=== PATIENT | female | born 1930 | race Caucasian/White ===

== ENCOUNTER → 2017-02-08 | Outpatient (REF) | payer MEDICARE, OTHER | LOC: M SMT 17:30 | PROVIDERS: ATTEND Nurse Practitioner Women's Health | DX: R31.29 Other microscopic hematuria (principal) | CPT/HCPCS: 81001; 87086; 88108; G0463 ==

== ENCOUNTER → 2017-02-12 | Outpatient (CLI) | payer MEDICARE, OTHER ==
[2017-02-12 17:44] LABS: CREATININE FOR GFR 1.84 MG/DL (0.55-1.02); GLOMERULAR FILTRATION RATE 27.6 (>32); POTASSIUM SERUM 4.6 MEQ/L (3.5-5.1)
== END ==
LOC: M SMT 11:11
PROVIDERS: ATTEND Nurse Practitioner Women's Health
DX: R31.29 Other microscopic hematuria (principal)

== ENCOUNTER → 2017-02-21 | Outpatient (CLI) | payer MEDICARE, OTHER ==
--- NOTE | 2017-02-21 14:17 | REP ---
CT abdomen pelvis without IV or bowel contrast: Comparison is 08/23/2005. There are no renal or ureteral calculi. There is no hydronephrosis. There are no bladder calculi. The right kidney is markedly atrophic. This has progressed from the prior study. The left kidney is unremarkable and unchanged. There is an infrarenal abdominal aortic aneurysm measuring 3.0 cm in diameter. This measured to point 8 cm in diameter, previously. There is no periaortic hematoma. There is vascular atheroma throughout the abdominal aorta. There is atelectasis/infiltrate in the right lower lobe. The lower lobe of the left lung is clear. The visualized unenhanced hepatic parenchyma is unremarkable. There are surgical clips in the abdominal right upper quadrant compatible with cholecystectomy. The pancreas and spleen are normal size and unremarkable. The adrenals are unremarkable. There is no bowel distension. Mesentery is unremarkable. Pelvis: The the patient indicates he has an appendectomy. The uterus and adnexa are unremarkable except for bilateral fallopian tube calcifications. These are unchanged. The bladder is unremarkable. There is no ascites or adenopathy. There is sigmoid colon diverticulosis without diverticulitis. Impression: Atrophic right kidney. This has progressed from the prior study. Left kidney is of normal size. There are no renal or ureteral calculi. No hydronephrosis. No bladder calculi. There is diverticulosis without diverticulitis. The patient has a cholecystectomy and appendectomy. In the absence of IV contrast the study is insensitive for renal masses. Signed by Raymundo Riggs MD 02/21/2017 02:09 P
== END ==
LOC: M RAD 12:44
PROVIDERS: ATTEND Nurse Practitioner Women's Health
DX: R31.29 Other microscopic hematuria (principal)

== ENCOUNTER → 2017-03-23 | Outpatient (REF) | payer MEDICARE, OTHER ==
[~2017-03-23] MED LIST: ADV250INH INH; ASPI1TAB PO; BISO5TAB5 PO; CYAN1000VL IM; DILT60TA PO; FERR240T PO; LEVO75TA4 PO; NITR0.4S14 SL; ROCA0.25 PO; SIMV40TA2 PO; SITA50TAB PO; VENTAER INH; XANA0.5T PO
== END ==
LOC: M LAB REF 13:10
PROVIDERS: ATTEND Family Medicine
DX: N25.81 Secondary hyperparathyroidism of renal origin (principal)

== ENCOUNTER → 2017-03-28 | Outpatient (CLI) | payer MEDICARE, OTHER ==
--- NOTE | 2017-03-28 09:40 | REP ---
Clinical: History of bladder tumor. Technique: PA and lateral. Comparison: 03/27/2010. Findings: Lung denton demonstrate diffuse chronic appearing interstitial changes without obvious acute consolidation. Lateral view demonstrates blunting to the posterior diaphragmatic surfaces which may reflect chronic change versus small pleural reactions. Mediastinum and cardiac silhouette are within normal limits and stable. Skeletal structures demonstrate age-related changes. Airway is patent and midline. Impression: Chronic-appearing changes. Signed by Vu Abad MD 03/28/2017 09:32 A
[2017-03-28 13:18] LABS: INR 0.98
== END ==
LOC: M SMT 08:03
PROVIDERS: ATTEND Urology
DX: D49.4 Neoplasm of unspecified behavior of bladder (principal); N39.0 Urinary tract infection, site not specified; Z01.818 Encounter for other preprocedural examination; Z79.899 Other long term (current) drug therapy

== ENCOUNTER 2017-04-02 05:51 | Day surgery (SDC) | payer MEDICARE, OTHER ==
--- NOTE | 2017-03-28 09:23 | CR ---
PREOPERATIVE EVALUATION AND CONSULTATION REQUESTING SURGEON: Dr. Paez CONSULTING PHYSICIAN: Dr. Vinicio Jordan DATE OF CONSULTATION: 03/26/2017 CHIEF COMPLAINT: Bladder cancer. HISTORY OF PRESENT ILLNESS: This is an 86-year-old female patient of [facility] who presents today for preoperative evaluation and consultation prior to urethroscopic bladder tumor resection to be completed by Dr. Paez on 04/02/2017. The patient notes that she is "feeling great." She denies any new problems or concerns. She notes that she has extensive support from her neighbors and that her son is traveling to [place] to be with her during the perioperative time period. She did have laboratories done on 03/23/2017 showing hemoglobin A1/c of 6.2, creatinine 1.4, BUN 21, otherwise appropriate electrolytes, lipids. Normal TSH, normal WBC, platelets. Minimal decrease in hemoglobin 11.7. EKG was completed today as well, showing normal sinus rhythm. Again, the patient notes that she feels well without any acute shortness of breath, chest pain, headache, vision changes, or new symptoms. She is unaware of any anesthesia issues that she has had in the past. She does see Dr. Guerin of cardiology due to a distant myocardial infarction and possible cardiomyopathy. However, echocardiogram done on 01/25/2016 showed a normal ejection fraction of 60 to 65% and no significant valvular disease. She denies any symptoms suggestive of sleep apnea. She does not feel that she snores or feels any daytime fatigue. It is notable that she is diagnosed with chronic obstructive pulmonary disease (COPD) and uses an Advair inhaler with Ventolin rescue, which is felt to be due to many years of smoking, for which she quit in 2000 after starting approximately in 1945. She notes that she has already stopped her aspirin 3 weeks in anticipation of surgery. She notes that she was already instructed on what to take and has been off her Plavix for 6 months. Medical issues include her hematuria, found to be a small bladder cancer, which is to be resected, history of remote myocardial infarction, leading to the diagnosis of coronary artery disease and follows with Dr. Guerin, chronic kidney disease with a creatinine that is now stable at 1.4 and previously gone as high as 1.9 in August 2016, hypothyroidism, hyperlipidemia, type 2 diabetes (well controlled), history of mild anemia, hypertension and significant anxiety. Each medical issue appears addressed and appears to be stable today. PAST MEDICAL HISTORY: 1. Bladder cancer. 2. COPD. 3. Type 2 diabetes, controlled. 4. Hyperlipidemia. 5. Hypothyroidism. 6. Coronary artery disease, remote myocardial infarction - saw Dr Guerin (Q 1 yr, no acute issues). 7. Chronic kidney disease stage III, most recent creatinine of 1.4. PAST SURGICAL HISTORY: 1. Cholecystectomy. 2. Appendectomy. MEDICATIONS: Include: - calcitriol 0.25 mcg daily - Advair Diskus 250/50 mcg per dose twice a day - Nitrostat 0.4 mg to be taken every 5 minutes times three as needed for chest discomfort - Januvia 50 mg daily - ferrous gluconate 240 mg by mouth daily - B12 injections 1 mL injected intramuscularly monthly - aspirin 81 mg daily - Ventolin HFA two puffs every 6 hours as needed - Xanax 0.5 mg by mouth at night as needed for anxiety - Levothyroxine 75 mcg by mouth daily - Cozaar 40 mg by mouth at night - Bisoprolol 5 mg by mouth daily - diltiazem 60 mg daily (The patient has been holding her aspirin for the last 3 weeks). ALLERGIES: No known drug allergies. SOCIAL HISTORY: The patient is . She lives alone in [place], but has help from her neighbors, whom she sees daily. She is a former smoker, smoked from the age of 14 until approximately 69. She rarely consumes any alcoholic beverages. She does have a son who is coming up to help her perioperatively. REVIEW OF SYSTEMS: As per history of present illness. Otherwise, 10-system review is negative. PHYSICAL EXAMINATION: VITAL SIGNS: 130/72 blood pressure, pulse is 76, height is 5 feet, her weight is 109 pounds, Body Mass Index (BMI) is 21.3. GENERAL: The patient appeared at baseline health. Well developed. No acute distress. Nontoxic. Alert and oriented times three. HEENT: Pupils are equal, round and reactive. No abnormalities of the eyes and face otherwise. Oral cavity and oropharynx benign. Tympanic membranes and external auditory canals benign. NECK: Supple. No lymphadenopathy. No thyromegaly appreciated. HEART: Regular rate and rhythm. S1, S2. Distant. LUNGS: Clear to auscultation bilaterally, although somewhat distant. No wheezes or rhonchi. ABDOMEN: Soft, nontender, nondistended. EXTREMITIES: No clubbing, cyanosis or edema. NEUROLOGIC: Examination is nonfocal, although the patient is relatively frail overall. PREOPERATIVE TESTING: As noted in the history of present illness, including EKG that shows normal sinus rhythm with some negative Q waves in the inferior leads but no other significant abnormalities. There is no tracing on record for comparison. ASSESSMENT AND PLAN: 1. Preoperative evaluation and consultation. At this point in time, as noted in the history of present illness, the patient is optimized for surgical intervention at this point in time. I will defer to the surgeon whether they feel cardiology consultation with Dr. Guerin is necessary; however, the patient is not having any symptoms of such. His last note does appear to infer that she is stable. She is having no respiratory issues on her present medication and she has had no significant history of anesthesia issues. Risks would include her history of myocardial infarction, type 2 diabetes, chronic obstructive pulmonary disease (COPD), hypertension. If there are any questions, feel free to call me at [phone]. 2. Bladder cancer. Appears to be contained and urethroscopic evaluation and resection is planned. The patient is happy about this. 3. Chronic obstructive pulmonary disease (COPD). Doing well without any issues. We will monitor. 4. Hypothyroidism. Has done well with normal TSH on present replacement. We will continue. 5. Coronary artery disease. Quite distant and appears to be stable. Has seen Dr. Guerin, who she follows up with on an annual basis. Normal echocardiogram last year. We will monitor. 6. Chronic kidney disease stage III, appears to be stable at 1.4. Patient was to see Dr. Benton; however, due to some prior legal issues regarding her is unable to. She has refused to see nephrology in [place]. Notes she will address any renal concerns with Dr. Andres and does understand that his specialty may not include this. 7. Hyperlipidemia. Doing well on Zocor. We will continue. 8. Ongoing care. I am going to see her again in the office in approximately 4 months with a CMP, TSH, CBC, and PTH. The patient has somewhat elevations of PTH but no hypercalcemia and she had a minimal decrease in her hemoglobin and we will followup. If she has new problems or issues sooner, she will let me know. FLOR
[~2017-04-02] VITALS: Ht 157.5 cm; Wt 49.0 kg
[2017-04-02] MEDS ORDERED: LIDOCAINE 1% MDV 20ML VIAL SQ PRN (06:00)
[2017-04-02] MEDS ORDERED: LR 1,000 ML IV SCH ×2 (06:00→09:00)
[2017-04-02] MEDS ORDERED: CONRAY-60 60% 50ML VIAL (Q9961) As Ordered ONE (07:15)
[2017-04-02] MEDS ORDERED: PROPOFOL 200 MG/20 ML VIAL As Ordered ONE (08:10)
[2017-04-02] MEDS ORDERED: fentaNYL 100 MCG/2 ML INJECTION (J3010) As Ordered ONE (08:10)
[2017-04-02] MEDS ORDERED: PHENYLephrine HCL 500 MCG/5 ML (100MCG/ML) SYRINGE (J2370) As Ordered ONE (08:12)
[2017-04-02] MEDS ORDERED: ePHEDrine SULFATE 25 MG/5 ML(5MG/ML) SYRINGE As Ordered ONE (08:12)
[2017-04-02] MEDS ORDERED: ROCURONIUM BROMIDE 50 MG/5 ML VIAL As Ordered ONE (08:13)
[2017-04-02] MEDS ORDERED: ONDANSETRON 4MG/2ML VIAL (J2405) As Ordered ONE (08:18)
[2017-04-02] MEDS ORDERED: GLYCOPYRROLATE INJ 0.2 MG/ML 2 ML VIAL As Ordered ONE (08:18)
[2017-04-02] MEDS ORDERED: NEOSTIGMINE 10 MG/10 ML VIAL (J2710) As Ordered ONE (08:18)
[2017-04-02] MEDS ORDERED: LIDOCAINE 2% INJ 100 MG/5 ML SDV (FOR ANES.) As Ordered ONE (08:24)
--- NOTE | 2017-04-02 08:57 | REP ---
Clinical: Retrograde pyelogram. Clinical: Possible stent placement. Chronic right renal atrophy. Findings: Real time fluoroscopic images during retrograde pyelogram demonstrates normal left renal collecting system through the kidney and ureter. The right collecting system is without evidence for hydroureteronephrosis, but demonstrates pyelotubular and pyelovenous/pyelolymphatic backflow. Total fluoroscopic time 15 seconds. Findings: No evidence for hydroureteronephrosis bilaterally. Signed by Vu Abad MD 04/02/2017 08:48 A
[2017-04-02] MEDS ORDERED: MEPERIDINE INJ 25 MG/ML VIAL (J2175) IV PRN (09:00)
[2017-04-02] MEDS ORDERED: fentaNYL 100 MCG/2 ML INJECTION (J3010) IV PRN (09:00)
[2017-04-02] MEDS ORDERED: ONDANSETRON 4MG/2ML VIAL (J2405) IV PRN (09:00)
[2017-04-02] MEDS ORDERED: ACETAMINOPHEN TAB 650MG DOSE (2X325MG) PO PRN (09:00)
--- NOTE | 2017-04-02 09:06 | RO ---
DATE OF PROCEDURE: 04/02/2017 PREPROCEDURE DIAGNOSIS: Bladder tumors. POSTPROCEDURE DIAGNOSIS: Bladder tumors. PROCEDURE: Cystoscopy, transurethral resection of bladder tumors (greater than 5 cm), bilateral retrograde pyelogram with intraoperative interpretation of images , examination under anesthesia. SURGEON: Ok Paez MD UNDERTAKER HELPER: None. ANESTHESIA: General. OPERATIVE INDICATIONS: This is an 86-year-old female who was found to have a large bladder tumor at her bladder base, as well as a few other small satellite tumors. Also, preoperative CAT scan was done without contrast, which was done for hematuria. She was brought to the operating room today to resect the tumors and also to obtain bilateral retrograde pyelograms to assess for upper tract masses as well. DESCRIPTION OF PROCEDURE: The patient was brought to the operating room where general anesthesia was induced. Prophylaxis antibiotics were infused. She was then placed in the dorsal lithotomy position, prepped and draped in the usual sterile fashion. A bimanual examination under anesthesia was performed and the bladder was freely mobile. There were no palpable bladder masses. At this point, a rigid cystoscope was inserted into the urethral meatus and advanced to the bladder. The bladder was then thoroughly examined and the only abnormalities seen were a large bladder tumor, approximately a little over 5 cm at the bladder base as well as two small satellite tumors, one on the right lateral wall and the other one at the level of the bladder neck. At this point, bilateral retrograde pyelograms were performed and they were negative for extravasation or hydronephrosis. There were no filling defects. After this , I began resecting out all the visible tumor using a loop until all the tumors had been completely removed. I then cauterized the base at the area of resection using coagulation current until there was adequate hemostasis. All the specimens were removed with an Snoox aspirator and were sent off for pathologic analysis. Once confirmed that there was adequate hemostasis and all specimen was removed, an #18 Brazilian Bolanos catheter was inserted into the bladder and the balloon was filled with 10 mm of sterile water. The fluid drained clear at the end of the procedure. The catheter was connected to gravity drainage. This marked conclusion of the procedure. The patient was then taken out of dorsal lithotomy position, awakened from anesthesia and transported to the recovery room in stable condition. ESTIMATED BLOOD LOSS: 0 mL. COMPLICATIONS: None. SPECIMENS: Bladder tumors. PLAN: The patient will followup in the clinic in approximately 1 week to discuss pathology results and to remove her catheter. FLOR
[2017-04-02] MEDS ORDERED: oxyBUTYnin 5 MG TAB PO ONE (10:00)
[2017-04-02 13:05] VITALS: BP 147/67
== END 2017-04-02 13:25 | disposition home or self-care (01) ==
LOC: M SDC 05:51
PROVIDERS: ATTEND Urology
DX: C67.9 Malignant neoplasm of bladder, unspecified (principal); J44.9 Chronic obstructive pulmonary disease, unspecified; I25.10 Atherosclerotic heart disease of native coronary artery without angina pectoris; N18.3 Chronic kidney disease, stage 3 (moderate); E03.9 Hypothyroidism, unspecified; D64.9 Anemia, unspecified; I25.2 Old myocardial infarction; I12.9 Hypertensive chronic kidney disease with stage 1 through stage 4 chronic kidney disease, or unspecified chronic kidney disease; E87.5 Hyperkalemia; E11.9 Type 2 diabetes mellitus without complications; E21.3 Hyperparathyroidism, unspecified; G47.9 Sleep disorder, unspecified; E55.9 Vitamin D deficiency, unspecified; E78.5 Hyperlipidemia, unspecified; N26.1 Atrophy of kidney (terminal); Z79.899 Other long term (current) drug therapy; Z79.82 Long term (current) use of aspirin; Z87.891 Personal history of nicotine dependence
CPT/HCPCS: 52240; 74420; 88307; J0690; J2370; J2405; J2710; J3010; Q9961

== ENCOUNTER → 2017-07-10 | Outpatient (REF) | payer MEDICARE, OTHER | LOC: M SMT 13:00 | DX: C67.9 Malignant neoplasm of bladder, unspecified (principal) | CPT/HCPCS: 88108 ==

== ENCOUNTER → 2017-07-25 | Outpatient (REF) | payer MEDICARE, OTHER ==
[2017-07-25 13:50] LABS: PTH INTACT 80.4 PG/ML (18.5-88.0)
== END ==
LOC: M LAB REF 13:01
DX: N25.81 Secondary hyperparathyroidism of renal origin (principal)
CPT/HCPCS: 83970

== ENCOUNTER → 2017-10-09 | Outpatient (REF) | payer MEDICARE, OTHER | LOC: M SMT 13:12 | DX: C67.9 Malignant neoplasm of bladder, unspecified (principal) | CPT/HCPCS: 88108 ==

== ENCOUNTER → 2018-01-15 | Outpatient (REF) | payer MEDICARE, OTHER | LOC: M SMT 13:22 | DX: C67.9 Malignant neoplasm of bladder, unspecified (principal) | CPT/HCPCS: 88108 ==

== ENCOUNTER → 2018-04-18 | Outpatient (REF) | payer MEDICARE, OTHER ==
[~2018-04-18] MED LIST changes: +ASAC800T3 PO; +FERR1TAB8 PO; +OMEP10CASR PO; +ZOFR4TAB16 PO
== END ==
LOC: M SMT 13:37
PROVIDERS: ATTEND Urology
DX: C67.9 Malignant neoplasm of bladder, unspecified (principal)

== ENCOUNTER 2018-05-03 14:22 | Emergency (ER) | payer MEDICARE, OTHER ==
[~2018-05-03] VITALS: Ht 157.5 cm; Wt 48.6 kg
[~2018-05-03 14:22] MED LIST changes: -ASAC800T3 PO; -FERR1TAB8 PO; -OMEP10CASR PO; -ZOFR4TAB16 PO
[2018-05-03 15:00] LABS: BASO # 0.1 10^3/uL (0.0-0.2); BASO % 0.6 % (0.0-1.0); EOS # 0.2 10^3/uL (0.0-0.50); EOS % 1.8 % (0.0-3.0); HEMATOCRIT 35.5 % (36.0-47.0); HEMOGLOBIN 12.1 g/dl (12.0-15.5); LYMPH # 1.4 10^3/uL (1.5-4.5); LYMPH % 16.9 % (24.0-44.0); MEAN CORPUSCULAR HEMOGLOBIN 32.1 pg (27.0-33.0); MEAN CORPUSCULAR HGB CONC 34.1 g/dl (32.0-36.5); MEAN CORPUSCULAR VOLUME 94.2 fl (80.0-96.0); MONO # 0.8 10^3/uL (0.0-0.8); MONO % 9.4 % (0.0-5.0); NEUTROPHILS # 5.9 10^3/uL (1.8-7.7); NEUTROPHILS % 71.1 % (36.0-66.0); PLATELET COUNT, AUTOMATED 345 10^3/uL (150-450); RED BLOOD COUNT 3.77 10^6/uL (4.00-5.40); WHITE BLOOD COUNT 8.3 10^3/uL (4.0-10.0)
[2018-05-03 15:11] LABS: INR 1.14; PROTHROMBIN TIME 14.8 SECONDS (12.1-14.4)
[2018-05-03 15:29] LABS: ALBUMIN 3.5 GM/DL (3.2-5.2); BILIRUBIN,DIRECT 0.2 MG/DL (0.0-0.2); BILIRUBIN,TOTAL 0.7 MG/DL (0.2-1.0); CALCIUM LEVEL 9.4 MG/DL (8.8-10.2); CREATININE FOR GFR 1.6 MG/DL (0.55-1.30); GLOMERULAR FILTRATION RATE 32.3 (>32); TOTAL PROTEIN 7.4 GM/DL (6.4-8.2)
[2018-05-03] MEDS ORDERED: ISOVUE-370 76% 100ML VIAL (Q9967) As Ordered ONE (15:36)
--- NOTE | 2018-05-03 16:13 | REP ---
Clinical: Postsurgical pain. Technique: Axial contrast enhanced images from the lung bases to the pubic symphysis using 100 ml Isovue 370 intravenous contrast material with coronal and sagittal re-formations. Comparison: 02/21/2017. Findings: Lung bases demonstrate chronic COPD/emphysematous changes with scattered scarring. Liver is essentially normal. Compensatory intrahepatic and extrahepatic biliary ductal dilatation is appreciated related to prior cholecystectomy and unchanged compared to prior examination. Spleen, pancreas, bilateral adrenal glands are normal. The kidneys demonstrate atrophic changes (right greater than left) along with minimal cortical scarring and small suspected cysts, but no perinephric stranding or hydronephrosis. The enteric system demonstrates mildly prominent loops of small bowel without evidence for focal obstruction which may represent a mild enteritis. Differential diagnosis would include early ileus. Colonic and sigmoid diverticula noted without acute diverticulitis. Pelvis demonstrates normal bladder and age-appropriate uterus/adnexa. No ascites. No free air. No significant adenopathy. Abdominal aorta demonstrates extensive atherosclerotic changes and mild ectasia without dissection. Musculoskeletal structures demonstrate scoliosis and degenerative changes. Impression: 1. Cannot exclude a very mild enteritis and/or early ileus. No evidence for bowel obstruction. 2. Diverticulosis without acute diverticulitis. 3. Further chronic changes as described above. 4. No ascites, free air, adenopathy, or focal inflammatory stranding. Electronically Signed by Vu Abad MD 05/03/2018 04:04 P
[2018-05-03] MEDS ORDERED: ASAC800T3 PO (16:40)
[2018-05-03 17:12] VITALS: BP 179/70
[2018-05-04] MEDS ORDERED: FERR1TAB8 PO (15:41)
[2018-05-13] MEDS ORDERED: CARA1TAB6 PO (05:49)
[2018-05-14] MEDS ORDERED: OMEP10CASR PO (22:53)
[2018-05-14] MEDS ORDERED: METO5TAB2 PO (22:53)
[2018-05-14] MEDS ORDERED: ZOFR4TAB16 PO (22:53)
[2018-05-14] MEDS ORDERED: CARA1TAB6 PO (22:55)
[2018-05-14] MEDS ORDERED: CYCL5TAB PO (22:56)
[2018-05-14] MEDS ORDERED: MESA800T PO (22:56)
== END 2018-05-03 17:14 | disposition home or self-care (01) ==
LOC: M ED 14:22 → EDBD 14:22 → M ED 17:14
DX: R10.30 Lower abdominal pain, unspecified (principal); Z98.890 Other specified postprocedural states; E11.9 Type 2 diabetes mellitus without complications; I10 Essential (primary) hypertension; J44.9 Chronic obstructive pulmonary disease, unspecified; I25.10 Atherosclerotic heart disease of native coronary artery without angina pectoris; Z79.899 Other long term (current) drug therapy
CPT/HCPCS: 36415; 74177; 80048; 80076; 81001; 83690; 85025; 85610; 86850; 86870; 86900; 86901; 87040; 99284; Q9967

== ENCOUNTER 2018-05-04 12:19 | Observation (INO) | payer MEDICARE, OTHER ==
[~2018-05-04] VITALS: Ht 157.5 cm; Wt 48.6 kg
[~2018-05-04 12:19] MED LIST changes: +ASAC800T3 PO
[2018-05-04] MEDS ORDERED: NS 1,000 ML IV SCH (12:44)
[2018-05-04] MEDS ORDERED: METOCLOPRAMIDE INJ 10MG/2ML VIAL (J2765) IV ONE (12:45)
[2018-05-04 12:59] LABS: BASO # 0.1 10^3/uL (0.0-0.2); BASO % 0.5 % (0.0-1.0); EOS # 0.1 10^3/uL (0.0-0.50); HEMATOCRIT 35.9 % (36.0-47.0); HEMOGLOBIN 11.9 g/dl (12.0-15.5); LYMPH # 1.5 10^3/uL (1.5-4.5); LYMPH % 13.6 % (24.0-44.0); MEAN CORPUSCULAR HEMOGLOBIN 31.2 pg (27.0-33.0); MEAN CORPUSCULAR HGB CONC 33.1 g/dl (32.0-36.5); MEAN CORPUSCULAR VOLUME 94.2 fl (80.0-96.0); MONO # 0.8 10^3/uL (0.0-0.8); MONO % 7.4 % (0.0-5.0); NEUTROPHILS # 8.4 10^3/uL (1.8-7.7); PLATELET COUNT, AUTOMATED 362 10^3/uL (150-450); RED BLOOD COUNT 3.81 10^6/uL (4.00-5.40); WHITE BLOOD COUNT 10.9 10^3/uL (4.0-10.0)
[2018-05-04 13:33] LABS: ALBUMIN 3.4 GM/DL (3.2-5.2); ALT/SGPT 13 U/L (12-78); BILIRUBIN,DIRECT 0.2 MG/DL (0.0-0.2); BILIRUBIN,TOTAL 0.7 MG/DL (0.2-1.0); BLOOD UREA NITROGEN 18 MG/DL (7-18); CALCIUM LEVEL 9.1 MG/DL (8.8-10.2); CARBON DIOXIDE LEVEL 25 MEQ/L (21-32); CHLORIDE LEVEL 102 MEQ/L (98-107); CPK CREATINE PHOSPHOKINASE 61 U/L (26-192); CREATININE FOR GFR 1.63 MG/DL (0.55-1.30); GLOMERULAR FILTRATION RATE 31.6 (>32); GLUCOSE, FASTING 326 MG/DL (70-100); LIPASE 158 U/L (73-393); MB/CK RELATIVE INDEX 2.95 (< OR =4); POTASSIUM SERUM 4.3 MEQ/L (3.5-5.1); SODIUM LEVEL 136 MEQ/L (136-145); TOTAL PROTEIN 7.3 GM/DL (6.4-8.2); TROPONIN I < 0.02 NG/ML (< 0.10)
[2018-05-04] MEDS ORDERED: HumuLIN R (REGULAR) INSULIN (NovoLIN R) **100U/ML** PER UNIT IV STA (13:42)
[2018-05-04] MEDS ORDERED: ACETAMINOPHEN 325 MG TAB PO ONE (13:45)
--- NOTE | 2018-05-04 13:56 | REP ---
Clinical: Abdominal pain. Technique: Supine view of the chest and abdomen/pelvis along with cross-table lateral view of the abdomen. Findings: Frontal view of the chest demonstrates chronic appearing interstitial changes. Supine and cross-table lateral views of the abdomen and pelvis demonstrate moderate fecal stasis without evidence for obstruction or perforation. Skeletal structures demonstrate age-related osteopenia and degenerative changes along with chronic scoliosis. Evidence of prior cholecystectomy noted. Impression: Nonspecific bowel gas pattern. Electronically Signed by Vu Abad MD 05/04/2018 01:47 P
[2018-05-04 14:23] LABS: HEMOGLOBIN A1c 6.2 %
[2018-05-04] MEDS ORDERED: ONDANSETRON 4MG/2ML VIAL (J2405) IV ONE (15:15)
[2018-05-04] MEDS ORDERED: FERR1TAB8 PO (15:41)
[2018-05-04] MEDS ORDERED: NITROGLYCERIN 0.4 MG SUBL TABLET SL PRN (16:15)
[2018-05-04] MEDS ORDERED: ALBUTEROL 90 MCG/ACT 8GM HFA INHALER INH PRN (16:15)
[2018-05-04] MEDS: NS 1,000 ML IV SCH ×2 (16:49→21:45)
[2018-05-04 17:00] VITALS: BP 145/65
--- NOTE | 2018-05-04 17:21 | HPE ---
DATE OF ADMISSION: 05/04/2018 An 87-year-old female with a past medical history of chronic kidney disease (CKD), III, diabetes, hypertension, coronary artery disease status post [id number] myocardial infarction (NSTEMI), history of non-oxygen dependent chronic obstructive pulmonary disease (COPD) who presented to the emergency room with nausea and diffuse crampy abdominal pain. She has been having this, according to her, for the past 5 days. She came to the emergency room (ER) yesterday and had a CT of the abdomen and pelvis done, which showed mild enteritis versus early ileus but no evidence of bowel obstruction. Was sent home yesterday, and her symptoms continued. She denies any subjective feeling of fever, aches, or chills, and this always happens after she eats. She had no associated diarrhea with this, only nausea most of the time after she eats, which subsequently ends with diffuse crampy abdominal pain, which eventually goes away. To note, she has had diabetes for many years. She will be admitted for further management. PAST MEDICAL HISTORY: 1. Non-oxygen dependent COPD. 2. Diabetes. 3. Hypertension. 4. Coronary artery disease, status post NC. 5. History of CKD III. 6. History of bladder cancer status post transurethral resection of bladder tumor in 2017. 7. Hypothyroidism. 8. Hyperlipidemia. ALLERGIES: No known drug allergies. FAMILY HISTORY: Noncontributory. SOCIAL HISTORY: Patient denies tobacco, alcohol, or illicit drugs. HOME MEDICATIONS: j - albuterol inhaler as needed - alprazolam 0.5 mg orally at bedtime - aspirin 81 mg orally daily - bisoprolol 5 mg orally daily - calcitriol 0.25 mcg orally daily - cyanocobalamin 1000 mcg orally every month - diltiazem 60 mg orally before meals and at bedtime - ferrous gluconate 240 mg orally daily - Synthroid 75 mcg orally daily - mesalamine 800 mg orally twice daily - nitroglycerine 0.4 mg sublingual as needed - salmeterol/fluticasone 250/50 one puff inhaled twice daily - simvastatin 40 mg orally at bedtime - sitagliptin 50 mg orally at bedtime REVIEW OF SYSTEMS: Negative for all 10 major systems except what has been mentioned in the history of present illness (HPI). VITAL SIGNS: Blood pressure 177/77, heart rate 61, regular, respiratory rate 19, temperature 96.4, oxygen saturation 97% on room air. HEAD: Atraumatic, normocephalic. NECK: Supple. No jugular venous distention (JVD). LUNGS: Clear to auscultation. HEART: S1, S2 audible. No murmurs appreciated. ABDOMEN: Soft. Positive bowel sounds. There is no rebound tenderness. SKIN: Intact. No pedal edema. NEUROLOGIC: Patient awake, alert, oriented times three. LABORATORY DATA: Sodium 136, potassium 4.3, chloride 102, CO2 of 25, anion gap 9, BUN 18, creatinine 1.63. Hemoglobin A1c of 6.2. Glucose is 131. Total bilirubin 0.7, AST 14, ALT 13, troponin is less than 0.02. Lipase is 158. IMPRESSION: Gastroenteritis. PLAN: This patient likely has a viral gastroenteritis. I doubt this is ileus. If this is not an infectious etiology to her symptoms, likely could be the beginning of diabetic gastroparesis. For now will assume it is infectious and will give her bowel rest, give her clear liquid diet only, and I started her on intravenous (IV) fluids, normal saline at 75 mL an hour. I will continue her preadmission medications, and I will hold off with the ferrous gluconate, as that could exacerbate her abdominal pain. Will give her Zofran for her nausea and vomiting and continue her care on the medical/surgical floor.
--- NOTE | 2018-05-04 18:31 | ECGEPIP ---
Stationary ECG Study [facility] - ED Test Date: 2018-05-04 Pat Name: KAMILA TEJEDA Department: Room: [place] [address] Gender: F Reject Opener And Filler: harriett : 1930 Requested By: Carol Lopez Order Number: [id number] Reading MD: Carol Lopez Measurements Intervals [place] Rate: 63 P: 82 PA: 167 QRS: 71 QRSD: 92 T: -12 QT: 430 QTc: 443 Interpretive Statements SINUS RHYTHM WITH SINUS ARRHYTHMIA NONSPECIFIC T-WAVE ABNORMALITY NO PRIOR FOR COMMPARISON Electronically Signed On 05-04-2018 18:31:26 EST by Carol Lopez
[2018-05-04] MEDS: ADVAIR HFA 115/21MCG INHALER INH SCH (18:34)
[2018-05-04] MEDS: ONDANSETRON 4MG/2ML VIAL (J2405) IV SCH ×2 (18:51→21:44)
[2018-05-04] MEDS: MESALAMINE 400 MG CAPSULE DELAYED RELEASE (DELZICOL) PO SCH (20:31)
[2018-05-04] MEDS ORDERED: SITagliptin 50 MG TAB (JANUVIA) PO SCH (21:00)
[2018-05-04] MEDS ORDERED: SIMVASTATIN 40 MG TAB PO SCH (21:00)
[2018-05-04] MEDS ORDERED: ALPRAZolam 0.5 MG TAB PO SCH (21:00)
[2018-05-04 22:00] VITALS: BP 121/49
[2018-05-05] MEDS: ONDANSETRON 4MG/2ML VIAL (J2405) IV SCH ×3 (03:08→10:49)
[2018-05-05 06:00] VITALS: BP 122/58
[2018-05-05] MEDS ORDERED: LEVOTHYROXINE 75MCG TABLET (0.075MG) PO SCH (06:00)
[2018-05-05 06:15] LABS: BASO # 0.1 10^3/uL (0.0-0.2); BASO % 0.7 % (0.0-1.0); EOS # 0.2 10^3/uL (0.0-0.50); EOS % 2.3 % (0.0-3.0); HEMATOCRIT 28.6 % (36.0-47.0); LYMPH # 1.9 10^3/uL (1.5-4.5); LYMPH % 21.6 % (24.0-44.0); MEAN CORPUSCULAR HEMOGLOBIN 31.1 pg (27.0-33.0); MEAN CORPUSCULAR HGB CONC 33.2 g/dl (32.0-36.5); MEAN CORPUSCULAR VOLUME 93.8 fl (80.0-96.0); MONO # 0.9 10^3/uL (0.0-0.8); MONO % 10.3 % (0.0-5.0); NEUTROPHILS # 5.6 10^3/uL (1.8-7.7); NEUTROPHILS % 64.6 % (36.0-66.0); PLATELET COUNT, AUTOMATED 278 10^3/uL (150-450); RED BLOOD COUNT 3.05 10^6/uL (4.00-5.40); WHITE BLOOD COUNT 8.7 10^3/uL (4.0-10.0)
[2018-05-05 06:26] LABS: HEMOGLOBIN 9.5 g/dl (12.0-15.5)
[2018-05-05 06:31] LABS: CREATININE FOR GFR 1.31 MG/DL (0.55-1.30); GLOMERULAR FILTRATION RATE 40.7 (>32); POTASSIUM SERUM 3.8 MEQ/L (3.5-5.1)
[2018-05-05] MEDS: ADVAIR HFA 115/21MCG INHALER INH SCH (07:43)
[2018-05-05 08:41] VITALS: BP 130/70
[2018-05-05] MEDS: MESALAMINE 400 MG CAPSULE DELAYED RELEASE (DELZICOL) PO SCH (08:41)
[2018-05-05] MEDS ORDERED: DEXTROSE 50% 50 ML SYRINGE IV PRN (09:00)
[2018-05-05] MEDS ORDERED: GLUCAGON FOR INJ 1 MG VIAL (J1610) SC PRN (09:00)
[2018-05-05] MEDS ORDERED: HEPARIN SOD (PORCINE) 5000 UNITS/ML VIAL SQ SCH (09:00)
[2018-05-05] MEDS ORDERED: GLUCOSE 4 GM CHEW TABLET PO PRN (09:00)
[2018-05-05] MEDS ORDERED: BISOPROLOL FUMARATE 5 MG TAB PO SCH (09:00)
[2018-05-05] MEDS ORDERED: PANTOPRAZOLE 40MG TAB (PROTONIX) PO SCH (09:00)
--- NOTE | 2018-05-05 09:04 | IPNPDOC ---
Date Seen The patient was seen on 05/05/18. Progress Note SUBJECTIVE: patient seen and examined at bedside, in no apparent distress, abdominal pain and nausea has improved. pt denies having diarrhea. will advance diet as tolerated and continue to observe OBJECTIVE PHYSICAL EXAMINATION: VITAL SIGNS: Please see below. GENERAL: well nourished, in no apparent distress HEENT: normocephalic, atraumatic, EOMI CARDIOVASCULAR: regular, rate and rhythm, normal s1 and s2, no murmurs, gallops or rubs RESPIRATORY: clear to auscultation, no wheezing or crackles ABDOMINAL: soft, non tender, non distended, + BS, no rebound or guarding EXTREMITIES: no edema, no calf tenderness NEUROLOGICAL: alert and oriented X 3, no focal deficits appreciated on the exam PSYCHOLOGICAL: normal mood and affect LABORATORY DATA, IMAGING STUDIES, MICROBIOLOGY: Please see below. DVT prophylaxis ordered?: heparin sub cutaneous ASSESSMENT AND PLAN: 87 year old female presents with nausea and crampy abdominal pain PROBLEMS: 1. Nausea/ abdominal pain: likely 2/2 gastro-enteritis vs gastritis, less likely gastro paresis vs less likely PUD ( A1C = 6.2%, good glycemic control): continue supportive treatment, zofran , advance diet as tolerated, gentle hydration, maalox, emperic trial of PPI, will d/c asacol started in ER 2 days ago. pt states most of her discomfort is after meals. 2. 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 DM with nephropathy: hold januvia, ISS 4. HTN: continue diltiazem and bisoprolol 5. COPD: stable, continue albuterol prn and advair 6. CAD: continue beta mary grace and NTG prn 7. Hypothyroidism: continue synthroid, send TSH 8. HPL: continue statin 9. hx of bladder ca s/p surgery: stable DISPOSITION: advance diet as tolerated, emperic trial of PPI, maalox prn, if pt tolerates diet. likely discharge this afternoon or tomorrow in the morning VS, I&O, 24H, Fishbone Vital Signs/I&O Vital Signs Date Time Temp Pulse Resp B/P (MAP) Pulse Ox O2 Delivery O2 Flow Rate FiO2 05/05/18 08:41 76 130/70 05/05/18 06:00 97.6 20 96 Room Air I&O- Last 24 Hours up to 6 AM 05/05/18 05:59 Intake Total 120 ml Output Total 300 ml Balance -180 ml Laboratory Data 24H LABS Laboratory Tests 2 05/04/18 12:51: Immature Granulocyte % (Auto) 0.5, White Blood Count 10.9H, Red Blood Count 3.81L, Hemoglobin 11.9L, Hematocrit 35.9L, Mean Corpuscular Volume 94.2, Mean Corpuscular Hemoglobin 31.2, Mean Corpuscular Hemoglobin Concent 33.1, Red Cell Distribution Width 14.6H, Platelet Count 362, Neutrophils (%) (Auto) 77.0H, Lymphocytes (%) (Auto) 13.6L, Monocytes (%) (Auto) 7.4H, Eosinophils (%) (Auto) 1.0, Basophils (%) (Auto) 0.5, Neutrophils # (Auto) 8.4H, Lymphocytes # (Auto) 1.5, Monocytes # (Auto) 0.8, Eosinophils # (Auto) 0.1, Basophils # (Auto) 0.1, Nucleated Red Blood Cells % (auto) 0.0, Anion Gap 9, Glomerular Filtration Rate 31.6L, Lactic Acid Level 1.5, Calcium Level 9.1, Aspartate Amino Transf (AST/SGOT) 14, Alanine Aminotransferase (ALT/SGPT) 13, Alkaline Phosphatase 113, Total Bilirubin 0.7, Direct Bilirubin 0.2, Total Creatine Kinase 61, Creatine Kinase MB 2.0, Creatine Kinase MB Relative Index 2.95, Troponin I < 0.02, Total Protein 7.3, Albumin 3.4, Albumin/Globulin Ratio 0.87L, Lipase 158 05/04/18 13:24: Estimated Mean Plasma Glucose 131H, Hemoglobin A1c 6.2 05/05/18 05:52: Immature Granulocyte % (Auto) 0.5, White Blood Count 8.7, Red Blood Count 3.05L, Hemoglobin 9.5#L, Hematocrit 28.6L, Mean Corpuscular Volume 93.8, Mean Corpuscular Hemoglobin 31.1, Mean Corpuscular Hemoglobin Concent 33.2, Red Cell Distribution Width 14.8H, Platelet Count 278, Neutrophils (%) (Auto) 64.6, Lymphocytes (%) (Auto) 21.6L, Monocytes (%) (Auto) 10.3H, Eosinophils (%) (Auto) 2.3, Basophils (%) (Auto) 0.7, Neutrophils # (Auto) 5.6, Lymphocytes # (Auto) 1.9, Monocytes # (Auto) 0.9H, Eosinophils # (Auto) 0.2, Basophils # (Auto) 0.1, Nucleated Red Blood Cells % (auto) 0.0, Anion Gap 8, Glomerular Filtration Rate 40.7, Calcium Level 8.0L, Blood Urea Nitrogen 14, Creatinine 1.31H, Sodium Level 141, Potassium Level 3.8, Chloride Level 111H, Carbon Dioxide Level 22 CBC/BMP Laboratory Tests 05/04/18 12:51 Red Blood Count 3.81 L, Mean Corpuscular Volume 94.2, Mean Corpuscular Hemoglobin 31.2, Mean Corpuscular Hemoglobin Concent 33.1, Red Cell Distribution Width 14.6 H, Neutrophils (%) (Auto) 77.0 H, Lymphocytes (%) (Auto) 13.6 L, Monocytes (%) (Auto) 7.4 H, Eosinophils (%) (Auto) 1.0, Basophils (%) (Auto) 0.5, Neutrophils # (Auto) 8.4 H, Lymphocytes # (Auto) 1.5, Monocytes # (Auto) 0.8, Eosinophils # (Auto) 0.1, Basophils # (Auto) 0.1 05/05/18 05:52 Red Blood Count 3.05 L, Mean Corpuscular Volume 93.8, Mean Corpuscular Hemoglobin 31.1, Mean Corpuscular Hemoglobin Concent 33.2, Red Cell Distribution Width 14.8 H, Neutrophils (%) (Auto) 64.6, Lymphocytes (%) (Auto) 21.6 L, Monocytes (%) (Auto) 10.3 H, Eosinophils (%) (Auto) 2.3, Basophils (%) (Auto) 0.7, Neutrophils # (Auto) 5.6, Lymphocytes # (Auto) 1.9, Monocytes # (Auto) 0.9 H, Eosinophils # (Auto) 0.2, Basophils # (Auto) 0.1, Calcium Level 8.0 L SUNDAY,GARY HOOD May 05, 2018 09:04
[2018-05-05] MEDS ORDERED: MAALOX 30 ML SUSP *UDC PO PRN (09:15)
[2018-05-05 10:13] LABS: THYROID STIMULATING HORMONE 3.65 uIU/ML (0.358-3.740)
[2018-05-05] MEDS ORDERED: CALCIUM GLUCONATE 1,000 MG in D5W MINI-BAG PLUS 100 ML IV ONE (11:00)
[2018-05-05] MEDS ORDERED: HumaLOG INSULIN (NovoLOG) PER UNIT SC SCH (12:00)
[2018-05-05] MEDS ORDERED: OMEP10CASR PO (13:50)
[2018-05-05] MEDS ORDERED: ZOFR4TAB16 PO (13:50)
--- NOTE | 2018-05-05 13:57 | DS.PDOC ---
Discharge Summary General Date of Admission May 04, 2018 at 16:13 Date of Discharge 05/05/18 Attending Physician: SUNDAY,GARY HOOD Discharge Summary PROCEDURES PERFORMED DURING STAY: [None]. ADMITTING DIAGNOSES: 1. abdominal pain/ Nausea DISCHARGE DIAGNOSES: 1. GERD, enteritis acute renal failure on CKD COMPLICATIONS/CHIEF COMPLAINT: Enteritis,Intractable Nausea And Vomiting. HISTORY OF PRESENT ILLNESS: 87 year old female with significant past medical hx of CKD, DM, HTN, Hypothyroidism, COPD , CAD presents with abdominal pain and nause for past 5 days HOSPITAL COURSE: AXR show no obstruction, CT 05/03/18: possible ileus vs enteritis. Labs noted for mild elevation in Cr and Hypocalcemia. Pt was fluid hydrated, diet advanced and pt tolerated with minimal discomfort. Pt stable for discharge DISCHARGE MEDICATIONS: Please see below. ALLERGIES: Please see below. PHYSICAL EXAMINATION ON DISCHARGE: VITAL SIGNS: Please see below. GENERAL: well nourished, no acute distress HEENT: normocephalic, atraumatic, EOMI NECK: supple, no JVP CARDIOVASCULAR EXAMINATION: regular, rate rhythm, normal s1 and s2 RESPIRATORY EXAMINATION: clear to auscultation b/l, no crackles ABDOMINAL EXAMINATION:soft, non tender, non distended, + BS EXTREMITIES:no edema, no calf tenderness SKIN: intact, no rashes, lesions or breakdowns NEUROLOGICAL EXAMINATION: A&O X3, no focal deficits PSYCHIATRIC EXAMINATION: mood normal LABORATORY DATA: Please see below. IMAGING: AXR: normal bowel gas pattern PROGNOSIS:good ACTIVITY: [As tolerated]. DIET: diabetic diet DISCHARGE PLAN:take prilosec as directed, maalox as needed , zofran as needed DISPOSITION: .Home DISCHARGE INSTRUCTIONS: 1. continue medications as directed ITEMS TO FOLLOWUP ON ON OUTPATIENT: 1. follow up with primary care provider in 1 week DISCHARGE CONDITION: [Stable]. TIME SPENT ON DISCHARGE: Greater than 40 minutes. Vital Signs/I&Os Vital Signs Date Time Temp Pulse Resp B/P (MAP) Pulse Ox O2 Delivery O2 Flow Rate FiO2 05/05/18 08:41 76 130/70 05/05/18 06:00 97.6 20 96 Room Air I&O- Last 24 Hours up to 6 AM 05/05/18 06:00 Intake Total 480 ml Output Total 500 ml Balance -20 ml Laboratory Data Labs 24H Laboratory Tests 2 05/05/18 05:52: Immature Granulocyte % (Auto) 0.5, White Blood Count 8.7, Red Blood Count 3.05L, Hemoglobin 9.5#L, Hematocrit 28.6L, Mean Corpuscular Volume 93.8, Mean Corpuscular Hemoglobin 31.1, Mean Corpuscular Hemoglobin Concent 33.2, Red Cell Distribution Width 14.8H, Platelet Count 278, Neutrophils (%) (Auto) 64.6, Lymphocytes (%) (Auto) 21.6L, Monocytes (%) (Auto) 10.3H, Eosinophils (%) (Auto) 2.3, Basophils (%) (Auto) 0.7, Neutrophils # (Auto) 5.6, Lymphocytes # (Auto) 1.9, Monocytes # (Auto) 0.9H, Eosinophils # (Auto) 0.2, Basophils # (Auto) 0.1, Nucleated Red Blood Cells % (auto) 0.0, Anion Gap 8, Glomerular Filtration Rate 40.7, Blood Urea Nitrogen 14, Creatinine 1.31H, Sodium Level 141, Potassium Level 3.8, Chloride Level 111H, Carbon Dioxide Level 22, Calcium Level 8.0L, Thyroid Stimulating Hormone (TSH) 3.650 05/05/18 12:15: Bedside Glucose (Misc Panel) 192H CBC/BMP Laboratory Tests 05/05/18 05:52 Red Blood Count 3.05 L, Mean Corpuscular Volume 93.8, Mean Corpuscular Hemoglobin 31.1, Mean Corpuscular Hemoglobin Concent 33.2, Red Cell Distribution Width 14.8 H, Neutrophils (%) (Auto) 64.6, Lymphocytes (%) (Auto) 21.6 L, Monocytes (%) (Auto) 10.3 H, Eosinophils (%) (Auto) 2.3, Basophils (%) (Auto) 0.7, Neutrophils # (Auto) 5.6, Lymphocytes # (Auto) 1.9, Monocytes # (Auto) 0.9 H, Eosinophils # (Auto) 0.2, Basophils # (Auto) 0.1, Calcium Level 8.0 L FSBS Laboratory Tests Test 05/05/18 12:15 Range/Units Bedside Glucose (Misc Panel) 192 83-110 MG/DL Discharge Medications Scheduled Alprazolam (Xanax) 0.5 Mg Tab, 0.5 MG PO QHS, (Reported) Bisoprolol Fumarate (Bisoprolol Fumarate) 5 Mg Tab, 5 MG PO DAILY, (Reported) Cyanocobalamin (Cyanocobalamin) 1,000 Mcg/1 Ml Inj, 1,000 MCG IM QMONTH, (Reported) Diltiazem Hcl (Cardizem) 60 Mg Tab, 60 MG PO DAILY, (Reported) Ferrous Sulfate (Ferrous Sulfate) 325 Mg Tab, 325 MG PO DAILY, (Reported) Levothyroxine Sodium (Synthroid) 75 Mcg Tab, 75 MCG PO DAILY, (Reported) Omeprazole (PriLOSEC) 10 Mg Capcr, 1 CAP PO DAILY Ondansetron HCl (Zofran) 4 Mg Tab, 1 TAB PO TID Salmeterol/Fluticasone (Advair Diskus 250-50 Mcg/Dose) 14 Puff/Inhaler Aerp, 1 PUFF INH BID, (Reported) Simvastatin - High Dose (Simvastatin) 40 Mg Tab, 40 MG PO QHS, (Reported) Sitagliptin (Januvia) 50 Mg Tab, 50 MG PO QHS, (Reported) Scheduled PRN Albuterol Sulfate (Ventolin Hfa) 108 Mcg/Act Aer, 2 PUFFS INH Q4H PRN for SHORTNESS OF BREATH, (Reported) Nitroglycerin (Nitroglycerin) 0.4 Mg Sub, 0.4 MG SL NITRO PRN for CHEST PAIN, (Reported) Allergies Coded Allergies: No Known Allergies (Unverified , 03/21/17) SUNDAYGARY MD May 05, 2018 13:57
== END 2018-05-05 14:45 | disposition home or self-care (01) ==
LOC: M ED 12:19 → EDBD 12:19 → M ED INP 16:13 → M MS5PR 17:00
PROVIDERS: ADMIT Internal Medicine; ATTEND Hospitalist
DX: K21.9 Gastro-esophageal reflux disease without esophagitis (principal); K52.9 Noninfective gastroenteritis and colitis, unspecified; N17.9 Acute kidney failure, unspecified; N18.9 Chronic kidney disease, unspecified; E11.9 Type 2 diabetes mellitus without complications; I12.9 Hypertensive chronic kidney disease with stage 1 through stage 4 chronic kidney disease, or unspecified chronic kidney disease; E03.9 Hypothyroidism, unspecified; J44.9 Chronic obstructive pulmonary disease, unspecified; I25.10 Atherosclerotic heart disease of native coronary artery without angina pectoris; E83.51 Hypocalcemia; Z79.899 Other long term (current) drug therapy
CPT/HCPCS: 36415; 74021; 80048; 80076; 82550; 82553; 83036; 83605; 83690; 84443; 84484; 85025; 93005; 93041; 94640; 96372; 96374; 96375; 96376; 99285; G0378; J0610; J2405; J2765